=== PATIENT | male | born 1970 | race Caucasian/White ===

== ENCOUNTER 2017-07-29 17:24 | Emergency (ER) | payer OTHER, SELFPAY ==
[2017-07-29 17:25] VITALS: BP 131/90; PULSE 116; RESP 18; TEMP 36.8; O2SAT 99; BMI 38.7
--- NOTE | 2017-07-29 17:42 | RAD_ITS ---
STUDY: X-RAY - RIGHT ANKLE REASON FOR EXAM: Male, 47 years old. FALL, LATERAL PAIN AND SWELLING TECHNIQUE: 3 view(s) of the ankle. COMPARISON: None. FINDINGS: There is tibiotalar, talonavicular and intertarsal degenerative joint disease. There are plantar and posterior calcaneal spurs. No acute fracture or dislocation is seen. There is lateral malleolar soft tissue swelling. RAD/Ankle min 3 Views IMPRESSION: No acute fracture is demonstrated. Electronically Signed: Elza Fay MD at 18:03 EDT , Service support ,
--- NOTE | 2017-07-29 18:42 | ED.DCSUM_ITS ---
- ER Visit Summary Date of Service: 07/29/17 Chief Complaint: Right ankle pain History of Present Illness: The patient is a [address] Arias. He had a forced inversion injury of his right ankle just prior to coming the emergency department. He denies any other injuries. He has a sharp, stabbing pain in his right ankle that is 10 out of 10 with walking out of 10 at rest. Denies any paresthesias distally. Physical Examination: Vitals: Stable. Afebrile. General: Well-nourished and well-developed. Head: Normocephalic atraumatic. Neck: Supple, no lymphadenopathy. No JVD. Nontender. Cardiovascular: Regular rate and rhythm. No murmurs. Respiratory: No respiratory distress. Clear to auscultation bilaterally. Abdominal: Soft, nontender, nondistended, normal bowel sounds. No guarding, rebound, or peritoneal signs. Back: Nontender. Extremities: Moderate soft tissue swelling and tenderness to palpation over the lateral malleolus. No pain over the medial malleolus. No pain over the base the fifth metatarsal. No pain over the proximal fibula. He is neurovascular intact distal to this.. Skin: Normal color, no rash. Neurologic: Alert and oriented ?3. Cranial nerves II through XII are intact. Normal strength and sensation. Psych: Normal affect. Test Results: X-ray is negative Emergency Department Course and Treatment: She refused pain medications and already has crutches. He is placed in an Jackson wrap. Treatment Plan: He will be discharged instructions to follow-up with his primary care physician in 1 week if not improving. Disposition: To home in improved and stable condition. Impression: 1. Right ankle sprain. This note was generated with elastic[employer]io dictation software. It may contain incorrect words, spelling, and punctuation that were not noted in review of the chart prior to signing ED Disposition - Plan for ED Patient: Disposition: Home or Assisted Living Chief Complaint: Lower Extremity Injury Instructions: ED Sprain Ankle W X Ray Referrals: Sisi Phelps MD [Primary Care Provider] - 1 Week if not improving
[2017-07-29 19:01] VITALS: BP 128/67; PULSE 90; RESP 18; O2SAT 98
== END 2017-07-29 19:01 | disposition home or self-care (01) ==
PROVIDERS: Emergency Provider Emergency Medicine; Family Provider Family Medicine; PCP Family Medicine
DX: S93.401A Sprain of unspecified ligament of right ankle, initial encounter (principal); Z72.0 Tobacco use; X50.1XXA Overexertion from prolonged static or awkward postures, initial encounter; Y93.89 Activity, other specified; Y92.89 Other specified places as the place of occurrence of the external cause; Y99.8 Other external cause status
CPT/HCPCS: 73610; 99282

== ENCOUNTER 2023-07-18 00:38 | Emergency (ER) | payer OTHER, SELFPAY ==
[2023-07-18] VITALS (7 sets, daily range): BP systolic 110–147; BP diastolic 71–96; PULSE 76–84; RESP 15–17; TEMP 36.4–36.6; O2SAT 94–100; BMI 35.6
--- NOTE | 2023-07-18 01:31 | CT_ITS ---
STUDY: CT ABDOMEN AND PELVIS WITH CONTRAST - URINARY TRACT REASON FOR EXAM: Male, 53 years old. abdominal pain -- IV PO Contrast RADIATION DOSAGE (If Supplied By Facility): CTDIvol = ( 19.93 ) mGy, DLP = ( 1346.21 ) mGycm TECHNIQUE: Oral and amp; IV Gastrografin and amp; 100mL Isovue-370 was administered. Transaxial images were obtained from the dome of the diaphragm to the symphysis pubis in the arterial, nephrographic and excretory phases. Multiplanar coronal and sagittal images were reformatted. Individualized Dose Optimization Techniques Were Used For This CT. COMPARISON: FINDINGS: The visualized lung bases are unremarkable. The visualized portions of the heart are within normal limits. Fatty infiltration of the liver. Normal gallbladder and extrahepatic biliary system. Normal spleen. Normal pancreas. Normal bilateral adrenal glands. Normal visualized stomach. Normal small intestine. Normal colon. Normal abdominal aorta. No retroperitoneal adenopathy. Bilateral nonobstructive kidney stones measuring up to 4 mm. Normal urinary bladder. Normal abdominal wall. Chronic bilateral pars defect of L5 with grade 1 [address]isthesis at L5-S1. CT/Abdomen/Pelvis WITH Contrast IMPRESSION: Bilateral nonobstructive kidney stones measuring up to 4 mm. Chronic bilateral pars defect of L5 with grade 1 spondylolisthesis at L5-S1. Fatty infiltration of the liver. Electronically Signed: Geri Desai MD at 5:07 EDT ,
--- NOTE | 2023-07-18 01:31 | EKG12_ITS ---
Test Reason : DYSRHYTHMIA Blood Pressure : / mmHG Vent. Rate : 079 BPM Atrial Rate : 079 BPM P-R Int : 104 ms QRS Dur : 126 ms QT Int : 400 ms P-R-T Axes : 044 056 041 degrees QTc Int : 458 ms Sinus rhythm with short NJ Right bundle branch block Abnormal ECG Confirmed by Jose Francisco Lomas ([id number]), acquisitions editor MAG [employer]AL ([id number]) on 07/18/2023 10:39:34 AM Referred By: ROMERO Confirmed By:Jose Francisco Lomas
[2023-07-18] MEDS: 0.9% Normal Saline (1000mL) 1,000 ML 1000 ML IV (01:47)
[2023-07-18] MEDS: Ondansetron 4 MG/2 ML Vial IV (01:47)
[2023-07-18 01:55] LABS: Absolute Lymphocyte Count 2.05 X10^3/uL (0.83-4.51); Absolute Neutrophil Count 7.1 X10^3/uL (2.0-7.7); Basophil# 0.07 X10^3/uL; Basophil% 0.7 % (0-1); Eosinophil# 0.11 X10^3/uL; Eosinophils% 1.1 % (0-5); Hematocrit 48.6 % (40-54); Hemoglobin 16.9 g/dL (13.0-16.5); Lymphocyte # 2.05 X10^3/ul (0.83-4.51); Lymphocyte % 19.9 % (19-41); Mean Corp Hgb Conc 34.8 g/dL (32-36); Mean Corpuscular Hgb 30.7 pg (27.0-32.0); Mean Corpuscular Volume 88.2 fL (80-94); Mean Platelet Vol. 11.2 fl (6.2-12.0); Monocyte# 0.97 X10^3/uL; Monocyte% 9.4 % (0-10); NRBC Flagged by Analyzer 0 % (0-5); Neutrophil # 7.08 X10^3/uL (2.7-7.7); Neutrophil % 68.7 % (47-70); Platelet Count 220 K/mm3 (150-450); RBC Distribution Width CV 12.8 % (11.6-14.6); RBC Distribution Width SD 41.5 fl (35.1-43.9); Red Blood Count 5.51 M/mm3 (4.6-6.2); White Blood Count 10.3 K/mm3 (4.4-11.0)
[2023-07-18 02:15] LABS: AST(SGOT) 25 U/L (15-37); Alanine Aminotransfer ALT/SGPT 44 U/L (16-61); Albumin, Serum 3.9 g/dL (3.2-5.0); Alkaline Phosphatase 70 U/L (45-117); Anion Gap 7 (5-15); BUN 14 mg/dL (7-18); BUN/Creat Ratio 12.2 RATIO (10-20); Bilirubin, Direct 0.22 mg/dL (0.00-0.30); Calcium,Total 8.8 mg/dL (8.5-10.1); Chloride 106 mmol/L (98-107); Creatinine, Serum 1.15 mg/dL (0.70-1.30); EST Glomerular Filtration Rate 70 mL/min (>60); Est Glom Filt Rate - Afr Amer 85 mL/min (>60); Estimated Creatinine Clearance 80.36 ml/min; Globulin 3.7 g/dL (2.2-4.2); Glucose 183 mg/dL (74-106); Lipase 103 U/L (13-75); Potassium 3.7 mmol/L (3.5-5.1); Protein, Total 7.6 g/dL (6.4-8.2); Sodium Level 140 mmol/L (136-145); Troponin-I HS 4 pg/mL (3.0-78.0)
--- NOTE | 2023-07-18 02:18 | EDS_ITS ---
HPI History of Present Illness Chief Complaint: Abd Pain Informant: patient and spouse/S.O. Narrative Narrative: 53-year-old male presenting to the emergency room with a chief complaint of abdominal pain. 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 He states that he ate a couple burgers tonight for dinner that his had made. He was asleep by about 1030 when he woke with pain in the general abdomen but worse on the left side. He states he feels pain in his back. No vomiting. No diarrhea. In fact he notes some constipation over the past several days. States about 15 years ago he had a similar episode that lasted about a day and resolved. He states no diagnosis was made. He notes that he has a history of diabetes and hypercholesterolemia on metformin and Lipitor. The patient denies any prior surgeries. No known allergies. Patient states he took some Tylenol but the pain continued to worsen so he came to the department. He states about 15 minutes before my examination the pain seemed to get better. [facility] Medical History Diabetes HTN (hypertension) Home Medications NK 07/29/17 [History Last Taken Unknown] Allergy/AdvReac Type Severity Reaction Status Date / Time No Known Allergies Allergy Verified 07/18/23 00:45 Social History Smoking Status: Current every day smoker tobacco type: cigarettes ROS ROS ED Constitutional Constitutional ED: Reports sweats; Denies chills, fever(s) or weight loss Eyes Eyes: Denies change in vision or diplopia ENT ENT ED: Denies ear pain, rhinorrhea or sore throat Cardiovascular Cardiovascular: Denies chest pain, orthopnea, palpitations or racing heartbeat Respiratory/Chest Respiratory/Chest: Denies cough, dyspnea or orthopnea Gastrointestinal Gastrointestinal: Reports abdominal pain, constipation and nausea; Denies diarrhea or vomiting Genitourinary Genitourinary ED: Denies dysuria, hematuria or urinary frequency Musculoskeletal Musculoskeletal: Reports back pain; Denies arthralgias, myalgias or neck pain Integumentary Denies abscess or rash Neurologic Neurologic: Denies headache(s) or weakness Psychiatric Psychiatric: Denies anxiety, depression, suicidal ideation or suicidal thoughts Endocrine Endocrinology: Denies polydipsia, polyphagia or polyuria Allergic/Immunologic Allergic/Immunologic ED: Denies mouth swelling, tongue swelling or urticaria EXAM Physical Exam Narrative Exam Narrative: Patient sleeping on repeat examination. He was easily awoken. Const Vital Signs: 07/18/23 00:39 07/18/23 01:39 07/18/23 02:00 Temperature 97.6 F L Temperature Source Temporal Pulse Rate 76 83 79 Respiratory Rate 15 16 17 Blood Pressure 147/96 H 122/79 H 110/71 Blood Pressure Mean 113 93 84 Pulse Ox 94 95 100 Oxygen Delivery Method Room Air Room Air Room Air 07/18/23 03:00 07/18/23 04:00 07/18/23 05:00 Temperature Temperature Source Pulse Rate 81 84 82 Respiratory Rate 16 16 15 Blood Pressure 126/74 H 132/80 H 120/85 H Blood Pressure Mean 91 97 96 Pulse Ox 96 96 96 Oxygen Delivery Method Positive well nourished, well developed and obese General Appearance ED: well developed Nutritional Appearance: obese HEENT Reports normocephalic, head/scalp atraumatic and moist mucous membranes Eyes PERRL and EOMs intact bilaterally Neck no lymphadenopathy, supple and no JVD Resp normal respiratory effort and clear to auscultation bilaterally Cardio regular rate, regular rhythm and no murmurs GI Inspection: Negative for abdominal distention Auscultation: normoactive bowel sounds Palpation: soft and tender LLQ and LUQ; Negative for guarding or rebound tenderness present Back/Spine no CVA tenderness and normal ROM Extremity normal to inspection General Extremety ED: Negative for edema General Extremity: Negative for edema Neuro oriented x3 and CN's II-XII intact bilaterally Sensorium / Orientation: alert Motor Exam: strength 5/5 throughout Psych mental status grossly normal Mood & Affect: Negative for depressed or tearful Skin no rashes or lesions noted and no wounds MDM MDM MDM Narrative Medical decision making narrative: Differential diagnosis includes but not limited to ACS, colitis, kidney stone, gastritis/gastric ulcer, bowel obstruction, constipation White count 10.3 with normal differential. BMP within normal limits except for glucose of 183. Liver enzymes are within normal limits. Lipase nonspecifically elevated at 103. Urinalysis no overt infection. Patient received morphine Zofran and IV fluids. CT of the abdomen pelvis with oral and IV contrast was obtained. This is negative for obvious acute injury or abdominal pathology per radiology. Findings were discussed with the patient who is resting more comfortably and his . This point symptoms could certainly be due to constipation and colonic contraction. I will give him a bottle of magnesium citrate here have him supervisor opening and picking another bottle if he does not have a bowel movement in 12 hours. History & Record Review Discussion w/independent historian: Patient and Family Lab Data Attestation: I reviewed the patient's lab results. Labs: Laboratory Results - last 24 hr 07/18/23 01:00 WBC 10.3 RBC 5.51 Hgb 16.9 H Hct 48.6 MCV 88.2 MCH 30.7 MCHC 34.8 RDW Std Deviation 41.5 RDW Coeff of Pebbles 12.8 Plt Count 220 MPV 11.2 Immature Gran % (Auto) 0.200 Neut % (Auto) 68.7 Lymph % (Auto) 19.9 Island % (Auto) 9.4 Eos % (Auto) 1.1 Baso % (Auto) 0.7 Absolute Neuts (auto) 7.1 Absolute Lymphs (auto) 2.05 Nucleated RBC % 0 Sodium 140 Potassium 3.7 Chloride 106 Carbon Dioxide 27.0 Anion Gap 7 BUN 14 Creatinine 1.15 Estim Creat Clear Calc 80.36 Est GFR (MDRD) Af Amer 85 Est GFR (MDRD) Non-Af 70 BUN/Creatinine Ratio 12.2 Glucose 183 H Calcium 8.8 Total Bilirubin 0.50 Direct Bilirubin 0.22 AST 25 ALT 44 Alkaline Phosphatase 70 Troponin I High Sens 4 Total Protein 7.6 Albumin 3.9 Globulin 3.7 Lipase 103 H Radiography Diagnostic Testing: Clinical Impression(s) from Imaging Studies Abdomen/Pelvis CT 07/18/23 01:31 IMPRESSION: Bilateral nonobstructive kidney stones measuring up to 4 mm. Chronic bilateral pars defect of L5 with grade 1 spondylolisthesis at L5-S1. Fatty infiltration of the liver. Electronically Signed: Geri Desai MD at 5:07 EDT , EKG Initial EKG: Attestation: I personally reviewed and interpreted this EKG as follows: Comments: Sinus rhythm with a ventricular rate of 79 bpm. Right bundle branch block noted. Discharge Plan Triage Chief Complaint: Abd Pain ED Provider: Juwan Dean Dx/Rx/DC Orders Clinical Impression: Abdominal pain, Constipation Instructions: Abdominal Pain, ED Constipation (Adult) Prescriptions: No Action NK Primary Care Provider: Gray Parisi NP Referrals: Gray Parisi TILT WALL SUPERVISOR, TIL[employer] WALL SUPERVISOR-C [Primary Care Provider] - As Needed Activity Restrictions/Additional Instructions: If no bowel movement 12 hours please take a second bottle of magnesium citrate. This is available [id number] at the pharmacy or a [facility] Disposition Disposition: Home, Self Care
[2023-07-18] MEDS: Morphine 4 MG/ML Syringe IV (04:32)
[2023-07-18 04:46] LABS: Bacteria 0 SEEN /hpf (None Seen); Mucous, Urine 0 SEEN /hpf (<or=2+); Red Blood Cells-Urine 0 SEEN /hpf (0-5); Squamous Epithelial Cells - UA 0 SEEN /hpf (0-5); White Blood Cells 0 SEEN /hpf (0-5)
[2023-07-18 04:50] LABS: Color, Urine Yellow (Yellow); Glucose, Dipstick 1000 mg/dl (Normal); Ketone-Dipstick Negative (Negative); Leukocyte Esterase-Dipstick Negative /ul (Negative); Nitrite-Dipstick Negative (Negative); Occult Blood-Urine 50 /ul (Negative); Protein-Dipstick Negative (Negative); Urine Bilirubin Dipstick Negative (Negative); Urine Clarity Clear (Clear); Urine Urobilinogen 1 mg/dl (Normal)
[2023-07-18] MEDS: Magnesium Citrate 300 ML PO (05:36)
== END 2023-07-18 05:43 | disposition home or self-care (01) ==
PROVIDERS: Emergency Provider Emergency Medicine; PCP Nurse Practitioner Primary Care; Visit Provider Emergency Medicine
DX: R10.9 Unspecified abdominal pain (principal); E11.9 Type 2 diabetes mellitus without complications; K59.00 Constipation, unspecified; F17.210 Nicotine dependence, cigarettes, uncomplicated; E66.9 Obesity, unspecified
CPT/HCPCS: 74177; 80048; 80076; 81001; 83690; 84484; 85025; 93005; 96361; 96374; 96375; 99284; J7030; Q9967; A4216; J2405